=== PATIENT | female | born 1955 | race Two or more races ===

== ENCOUNTER 2024-03-21 15:42 | Emergency (ER) | payer SELFPAY ==
--- NOTE | 2024-03-21 15:54 | XR_ITS ---
Examination: PA lateral chest 2 views TECHNIQUE: Upright PA lateral chest 2 views Exam date and time: March 21, 2024 1559 hours INDICATIONS: Coughing shortness of breath today FINDINGS: Normal heart size Lungs are clear. The osseous structures are intact IMPRESSION: No pneumonia identified
[2024-03-21 15:55] VITALS: BP 113/73; PULSE 97; RESP 19; TEMP 36.8; O2SAT 95
--- NOTE | 2024-03-21 16:20 | EKG_ITS ---
[facility] Test Date: 2024-03-21 Pat Name: TAMIR SERVIN Department: Room: - Gender: Female [employer] Apprentice: : 1955 Requested By: Amy Mccarty ([facility]) [place]rina Order Number: [id number] Reading MD: Amy Mccarty ([facility]) Sabrina Measurements Intervals [place] Rate: 91 P: 19 MN: 142 QRS: 3 QRSD: 89 T: 4 QT: 275 QTc: 339 Interpretive Statements SINUS RHYTHM NONSPECIFIC T-WAVE ABNORMALITY No previous ECG available for comparison /store/S0/[id number].pdf
--- NOTE | 2024-03-21 16:21 | PD.EDRME ---
Rapid Medical Screening Exam RME Arrival date/time: 03/21/24 15:42 69-year-old female presents emergency department with complaints of chest discomfort, and cough for 3 days. I have greeted and performed a focused initial assessment of this patient. Initial appropriate labs ordered at this time. A comprehensive ED assessment and evaluation of the patient and analysis of all test and completion of medical decision making process will be conducted by additional ED provider. Chief Complaint: Flu Like Symptoms Time Seen by Provider: 03/21/24 15:54 Vital signs: Vital Signs Temperature 98.2 F 03/21/24 15:55 Pulse Rate 97 03/21/24 15:55 Respiratory Rate 19 03/21/24 15:55 Blood Pressure 113/73 03/21/24 15:55 Pulse Oximetry (%) 95 03/21/24 15:55 Oxygen Delivery Method Room Air 03/21/24 15:55
[2024-03-21 17:30] LABS: Basophils % (Auto) 0 % (0-2.5); Eosinophils % (Auto) 0 % (0-10); Hematocrit 37.9 % (36.0-46.0); Hemoglobin 13.3 g/dL (12.0-16.0); Immature Granulocytes % (Auto) 1 % (0-0); Immature Granulocytes Auto 0.07 Thou/mm3 (0.00-0.00); Lymphocytes # (Auto) 0.9 Thou/mm3 (1.0-4.8); Lymphocytes % (Auto) 6 % (10-50); Mean Corpuscular HGB Conc 35.1 g/dl (31.0-37.0); Mean Corpuscular Hemoglobin 30.6 pg (25.0-35.0); Mean Corpuscular Volume 87 fL (80-100); Monocytes # (Auto) 0.9 Thou/mm3 (0.0-0.8); Monocytes % (Auto) 6 % (0-12); Neutrophils # (Auto) 12.8 Thou/mm3 (1.8-7.7); Neutrophils % (Auto) 87 % (37-80); Nucleated Red Blood Cell % 0 /100 WBC (0); Platelet Count 232 Thou/mm3 (140-440); RDW Standard Deviation 41.8 fL (36.4-46.3); Red Blood Count 4.35 Miln/mm3 (4.00-5.20); White Blood Count 14.7 Thou/mm3 (3.6-11.0)
[2024-03-21 18:00] LABS: B-Type Natriuretic Peptide 23 pg/mL (0-100)
[2024-03-21 18:02] LABS: Alanine Aminotransferase 14 U/L (10-49); Albumin, Serum 4.7 gm/dL (3.4-4.8); Albumin/Globulin Ratio 1.3 (1.2-2.2); Alkaline Phosphatase 123 U/L (46-116); Anion Gap 8 (7-16); Aspartate Amino Transferase 17 U/L (0-34); BUN/Creatinine Ratio 17 Ratio (12-20); Bilirubin,Total 1.5 mg/dL (0.3-1.2); Blood Urea Nitrogen 12 mg/dL (9-23); Calcium 9.5 mg/dL (8.3-10.6); Calcium (Corrected) 9.5 mg/dL (8.5-10.1); Carbon Dioxide 26.2 mMol/L (20.0-31.0); Chloride 95 mMol/L (98-107); Creatinine (Component) 0.7 mg/dL (0.6-1.3); Globulin 3.7 gm/dL (2.3-3.5); Glucose 211 mg/dL (74-106); Osmolality,Calculated 264 (275-295); Potassium 3.8 mMol/L (3.4-5.1); Sodium 129 mMol/L (136-145); Total Protein 8.4 gm/dL (5.7-8.2); Troponin I < 0.020 ng/mL (0.0-0.045); eGFR > 60 See Note
--- NOTE | 2024-03-21 20:13 | PD.EDURI ---
Upper Respiratory Inf. RME/HPI General Chief Complaint: Flu Like Symptoms Stated Complaint: COUGH Time Seen by Provider: 03/21/24 15:54 Arrival date/time: 03/21/24 15:42 RME / HPI RME / HPI Narrative: 69-year-old female presents emergency department with complaints of chest discomfort, and cough for 3 days. Denies any fever denies any shortness of breath denies any other complaints no medication was taken prior to arrival. Related Data Previous Rx's ?Medication ?Instructions ?Recorded ibuprofen 600 mg tablet 600 mg PO TID PRN fever or pain 03/21/24 #30 tabs oseltamivir 75 mg capsule (Tamiflu) 75 mg PO BID 5 days #10 caps 03/21/24 pseudoephedrine-guaifenesin ER 120 1 tab PO Q12H PRN cold symptoms 03/21/24 mg-1,200 mg tab,extend release #14 tabs 12hr (Mucinex D Maximum Strength) Allergies Allergy/AdvReac Type Severity Reaction Status Date / Time No Known Allergies Allergy Verified 03/21/24 15:44 Review of Systems Review of Systems Narrative Review of Systems: Review of system reviewed and within normal limits except mentioned in HPI ED Exam Narrative Physical exam: VITAL SIGNS: Reviewed. GENERAL APPEARANCE: Alert and interactive, follows commands, no acute distress, HEAD AND FACE: Non-traumatic. ENT: PERRL, pink conjunctivitis, eyelid no trauma, Mucous membrane moist. NECK: Supple, nontender, no nuchal rigidity. CHEST: No tenderness, no crepitus, no paradoxical movement, no retractions. LUNGS: Clear, well ventilated, symmetric, no rales, no wheezing, no ronchi, no stridor, good breath sounds bilaterally. HEART: Regular rate, regular rhythm, no murmur, no gallops. ABDOMEN: Soft, positive bowel sounds, nondistended, no guarding, nontender, no rebound, no masses, RECTAL: Deferred. GENITAL: Deferred. NEUROLOGICAL: Gross motor function intact sensory function intact, Appropriate for age. MUSCULOSKELETAL: low back nontender, full range of motion. EXTREMITIES: Nontender, full range of motion. SKIN: Color pink, dry, no rash, no lacerations, no abrasions, no contusions. LYMPHATICS: Deferred. Course Quality Measures none Orders Category Date Time Status Bedside COVID-19 Antigen Test NOW Care 03/21/24 15:54 Active Bedside Influenza A&B Antigen Test NOW Care 03/21/24 15:54 Completed EKG (ED ONLY) *Do not use* NOW Care 03/21/24 16:21 Completed EKG (ED Only) Stat Exams 03/21/24 16:20 Draft XR chest 2V Stat Exams 03/21/24 15:54 Completed BNP [B-Type Natriuretic Peptide] Stat Lab 03/21/24 16:59 Completed CBC Stat Lab 03/21/24 16:59 Completed CMP [Comprehensive Metabolic Panel] Stat Lab 03/21/24 16:59 Completed Troponin I Stat Lab 03/21/24 16:59 Completed Vital Signs Vital signs: Vital Signs Temperature 98.2 F 03/21/24 15:55 Pulse Rate 97 03/21/24 15:55 Respiratory Rate 19 03/21/24 15:55 Blood Pressure 113/73 03/21/24 15:55 Pulse Oximetry (%) 95 03/21/24 15:55 Oxygen Delivery Method Room Air 03/21/24 15:55 Upper Respiratory Infection MDM Narrative MDM Narrative:: 69-year-old female presents emergency department with complaints of chest discomfort, and cough for 3 days. Denies any fever denies any shortness of breath denies any other complaints no medication was taken prior to arrival. Patient laboratory workup all came back unremarkable except positive for influenza B. Chest x-ray showed no pneumonia. Patient is satting 95% on room air. Stable for charge Patient data External records reviewed:: None Clinical information provided by:: family and none Social determinants that could affect healthcare access:: none Patient has the following chronic illnesses:: None How is presenting disease/condition affected by chronic disease/condition?: uneffected by Evaluation data The following diagnostics were reviewed and interpreted by me:: lab results and radiology exam(s) Lab and/or radiology exams considered but not ordered:: None Interpretation Summary: I personally reviewed and interpreted the x-ray of this patient. There is no acute abnormalities found, no infiltrates no pneumothorax no hemothorax normal chest x-ray. Review of other structures was without significant abnormal findings also. I additionally reviewed the radiologist report and agree with the interpretation. Laboratory workup all came back unremarkable. Patient tested positive for influenza B EKG showed normal sinus rhythm, ventricular of 91 bpm, no ST segment elevation or depression noted. Medications / Prescriptions Medications or Prescriptions considered but not ordered:: None Medication administrations:: None Consultations Consultation(s) initiated? (list below): No Diagnosis Upper Respiratory Differential Diagnosis: viral infection, bronchitis and influenza Most likely diagnosis given after review of the tests above:: Influenza B Admission Indicated Admission indicated?: not indicated Explain why admission is indicated or not indicated:: Stable Admission Request Was there a request for admission?: No Disposition Plan Disposition Plan: Discharge Discharge Attestation Discharge Attestation: The patient and all family members were given an opportunity to ask questions and understood the discharge instructions. Discharge instructions specifically effects, indications for sooner follow up or return to the emergency department, and the expected course of current diagnosis. Patient condition: Stable Discharge Plan Plan Patient Disposition: HOME (Self Care) Disposition Comment: stable Prescriptions/Referrals Prescriptions/Med Rec: New oseltamivir [Tamiflu] 75 mg capsule 75 mg PO BID 5 Days Qty: 10 0RF ibuprofen 600 mg tablet 600 mg PO TID PRN (Reason: fever or pain) Qty: 30 0RF pseudoephedrine-guaifenesin [Mucinex D Maximum Strength] 120-1,200 mg tablet extended release 12 hr 1 tab PO Q12H PRN (Reason: cold symptoms) Qty: 14 0RF Referrals: No Primary/Family,Physician [Primary Care Provider] - In 1 week Problem List Clinical Impression: Influenza B Patient/Caregiver Discharge Instructions Discharge Activity: activity as tolerated Education Materials: ED Influenza (Adult) Additional Instructions: Thank you for the opportunity for serving you today. You are stable for discharged . You are advised to: Follow-up with your PCP in 1 to 2 days Return to ED for worsening of symptoms Increase oral fluids Take medication as prescribed Print Language: Citizen Of [place] Stand Alone Forms: Joyce Award Info., Patient Portal Info Letter PA/CASEY Supervising Physician PA/CASEY Supervising Physician: MD Jacquie
== END 2024-03-21 20:36 | disposition home or self-care (01) ==
PROVIDERS: Nurse Practitioner Primary Care; Emergency Provider Emergency Medicine
DX: J10.1 Influenza due to other identified influenza virus with other respiratory manifestations (principal); R94.31 Abnormal electrocardiogram [ECG] [EKG]
CPT/HCPCS: 36415; 71046; 80053; 83880; 84484; 85025; 87400; 87811; 93005; 99283